=== PATIENT | male | born 1970 | race Hispanic/Latino ===

== ENCOUNTER 2017-08-12 20:46 | Emergency (ER) | payer SELFPAY ==
[2017-08-12 21:06] VITALS: BP 118/75
[2017-08-12 22:08] LABS: BUN/Creatinine Ratio 17; Blood Urea Nitrogen 17 mg/dL (9-20); Calcium 9.4 mg/dL (8.4-10.2); Carbon Dioxide 25 mmol/L (22-30); Glucose 102 mg/dL (75-100)
[2017-08-12 22:09] LABS: Anion Gap 17 mmol/L; Chloride 99.2 mmol/L (98-107); Potassium 4.5 mmol/L (3.6-5.0); Sodium 137 mmol/L (137-145)
[2017-08-12 22:18] LABS: Basophils % (Auto) 0.5 % (0.0-1.8); Eosinophils % (Auto) 1.3 % (0.0-4.3); Hematocrit 48.8 % (35.5-45.6); Hemoglobin 16.2 gm/dl (11.8-15.2); Mean Corpuscular HGB Conc 33 % (32-34); Mean Corpuscular Hemoglobin 30 pg (28-32); Mean Corpuscular Volume 89 fl (84-94); Platelet Count 296 K/mm3 (140-440); Red Blood Count 5.46 M/mm3 (3.65-5.03); Red Cell Distribution Width 13.2 % (13.2-15.2); White Blood Count 15.9 K/mm3 (4.5-11.0)
--- NOTE | 2017-08-12 22:52 | Emergency Department Report ---
ED Chest Pain HPI - General Chief Complaint: Chest Pain Stated Complaint: CHEST PAIN Time Seen by Provider: 08/12/17 22:44 Source: patient, EMS Mode of arrival: Stretcher Limitations: No Limitations - History of Present Illness Initial Comments: This is a 47-year-old male presents to the emergency department via EMS from home with complaint of some left-sided chest pain with some radiation towards the back that he says started just prior to presentation. He thinks it is due to anxiety because there is a "a lot of stuff going on at home." However he says that he is feeling much better at this time and immediately asking for discharge. He has a history of coronary artery disease with [address] Trammell for cardiology but does not have a primary care physician. He denies any tobacco abuse and only marijuana for illicit drug use. He received an aspirin in route but otherwise did not take anything for his symptoms prior to presentation. No recent travel or sick contacts at home. He also has a past history of hypertension, kidney stones. - Related Data Home Medications Medication Instructions Recorded Confirmed Last Taken Aspirin [Aspirin TAB] 325 mg PO QDAY 07/30/14 10/18/14 10/17/14 Lisinopril [Zestril] 5 mg PO QDAY 07/30/14 10/18/14 10/17/14 Metoprolol [Lopressor TAB] 25 mg PO BID 07/30/14 10/18/14 10/17/14 Previous Rx's Medication Instructions Recorded Last Taken Type Ciprofloxacin HCl [Cipro] 500 mg PO Q12H #20 tab 07/30/14 10/17/14 Rx Famotidine [Pepcid] 20 mg PO BID #20 tablet 07/30/14 10/17/14 Rx Ibuprofen [Motrin 600 MG tab] 600 mg PO Q8H PRN #50 tablet 10/12/14 10/17/14 Rx Oxycodone HCl/Acetaminophen 1 each PO Q6HR PRN #14 tablet 10/12/14 10/17/14 Rx [Percocet 7.5/325 mg] Tamsulosin [Flomax] 0.4 mg PO QDAY #10 cap 10/12/14 10/17/14 Rx Omeprazole [PriLOSEC] 20 mg PO BID #20 cap 10/18/14 Unknown Rx traMADol [Ultram] 50 mg PO Q4HR PRN #20 tablet 10/18/14 Unknown Rx Allergies Allergy/AdvReac Type Severity Reaction Status Date / Time codeine Allergy Itching Verified 10/12/14 02:54 Heart Score - HEART Score History: Moderately suspicious EKG: Normal Age: 45-65 Risk factors: > 3 risk factors or hx of atherosclerotic disease Troponin: < normal limit HEART Score: 4 - Critical Actions Critical Actions: 4-6 pts:12-16.6% risk of adverse cardiac event. Should be admitted ED Review of Systems ROS: Stated complaint: CHEST PAIN Other details as noted in HPI Comment: All other systems reviewed and negative Constitutional: denies: chills, fever Eyes: denies: eye pain, eye discharge, vision change ENT: denies: ear pain, throat pain Respiratory: denies: cough, shortness of breath Cardiovascular: chest pain. denies: palpitations Gastrointestinal: denies: abdominal pain, nausea, diarrhea Genitourinary: denies: urgency, dysuria Musculoskeletal: denies: back pain, joint swelling Skin: denies: rash, lesions Neurological: denies: headache, weakness, paresthesias ED Past Medical Hx - Past Medical History Previous Medical History?: Yes Hx Hypertension: Yes Hx Heart Attack/AMI: Yes Hx Kidney Stones: Yes - Surgical History Past Surgical History?: Yes Hx Coronary Stent: Yes (2010 x2) Additional Surgical History: Left shoulder surgery, Right knee surgery - Social History Smoking Status: Current Every Day Smoker Substance Use Type: Prescribed - Medications Home Medications: Home Medications Medication Instructions Recorded Confirmed Last Taken Type Aspirin [Aspirin TAB] 325 mg PO QDAY 07/30/14 10/18/14 10/17/14 History Ciprofloxacin HCl [Cipro] 500 mg PO Q12H #20 tab 07/30/14 10/18/14 10/17/14 Rx Famotidine [Pepcid] 20 mg PO BID #20 tablet 07/30/14 10/18/14 10/17/14 Rx Lisinopril [Zestril] 5 mg PO QDAY 07/30/14 10/18/14 10/17/14 History Metoprolol [Lopressor TAB] 25 mg PO BID 07/30/14 10/18/14 10/17/14 History Ibuprofen [Motrin 600 MG tab] 600 mg PO Q8H PRN #50 tablet 10/12/14 10/18/14 Rx Oxycodone HCl/Acetaminophen 1 each PO Q6HR PRN #14 tablet 10/12/14 10/18/14 Rx [Percocet 7.5/325 mg] Tamsulosin [Flomax] 0.4 mg PO QDAY #10 cap 10/12/14 10/18/14 10/17/14 Rx Omeprazole [PriLOSEC] 20 mg PO BID #20 cap 10/18/14 Unknown Rx traMADol [Ultram] 50 mg PO Q4HR PRN #20 tablet 10/18/14 Unknown Rx ED Physical Exam - General Limitations: No Limitations - Other Other exam information: GENERAL: The patient is well-developed well-nourished. HENT: Normocephalic. Atraumatic. Patient has moist mucous membranes. EYES: Extraocular motions are intact. Pupils equal reactive to light bilaterally. NECK: Supple. Trachea is midline. CHEST/LUNGS: Clear to auscultation. There is no respiratory distress noted. HEART/CARDIOVASCULAR: Regular. There is no tachycardia. There is no gallop rub or murmur. ABDOMEN: Abdomen is soft, nontender. Patient has normal bowel sounds. There is no abdominal distention. SKIN: Skin is warm and dry. NEURO: The patient is awake, alert, and oriented. The patient is cooperative. The patient has no focal neurologic deficits. The patient has normal speech. MUSCULOSKELETAL: There is no tenderness or deformity. There is no limitation range of motion. There is no evidence of acute injury. ED Course Vital Signs 08/12/17 20:58 Temperature 98.7 F Pulse Rate 91 H Respiratory 24 Rate Blood Pressure 118/75 O2 Sat by Pulse 97 Oximetry - Reevaluation(s) Reevaluation #1: Just as I'm doing the history and physical for this patient, the patient continually saying that he is asking to be discharged home as he says he feels better and feels it is all related to anxiety. So far his workup has been unremarkable with a normal CBC, BMP and a first negative troponin. EKG does not show any ST elevation TN. I explained to the patient that with his plate of symptoms that I would like to rule out a PE and get a second troponin on him and a repeat EKG. He does not want to stay for this. I explained to him that inability to complete the workup could result in further chest pain, myocardial infarction, disability, coma, . The patient is AAO 3 and of sound mind and understands that he is taking the responsibility for leaving prior to this workup being completed. He understands that he can return to the emergency department if he has any return of his symptoms, changes his mind or with any acute distress. He will sign the AMA form. 08/12/17 22:53 JAE score - Jae Score Age > 65: (0) No Aspirin use within the Past 7 Days: (0) No 3 or more CAD Risk Factors: (1) Yes 2 or more Angina events in past 24 hrs: (0) No Known CAD with more than 50% Stenosis: (0) No Elevated Cardiac Markers: (0) No ST Deviation Greater than 0.5mm: (0) No JAE Score: 1 ED Medical Decision Making - Lab Data Result diagrams: 08/12/17 21:25 08/12/17 21:25 - EKG Data -: EKG Interpreted by Me EKG shows normal: sinus rhythm, axis, intervals, QRS complexes, ST-T waves Rate: normal - EKG Data When compared to previous EKG there are: previous EKG unavailable Interpretation: normal EKG - Radiology Data Radiology results: image reviewed interpreted by me: Chest x-ray does not show any acute process. There are no pleural effusions, obvious pneumonia and there is no pneumothorax. - Medical Decision Making The patient originally presented with the complaint of some left-sided chest pain. However as I am finishing up the history and physical, he says that he no longer has any pain and wants to leave. I explained in great detail that he has only had a first troponin and that the troponin might not yet be positive and that we need serial troponins. I also explained the importance of other labs and imaging to rule out CHF, PE. However the patient does not want to stay for any further testing. He understands the risks of leaving prior to the workup being done and despite knowing the risks has signed out AGAINST MEDICAL ADVICE. He has been encouraged to follow up with his review consultant and return to the emergency department if he changes his mind or with any chest pain or any acute distress. - Differential Diagnosis TN, PE, costochondritis, pneumonia Critical Care Time: No Critical care attestation.: If time is entered above; I have spent that time in minutes in the direct care of this critically ill patient, excluding procedure time. ED Disposition Clinical Impression: Chest pain Qualifiers: Chest pain type: unspecified Qualified Code(s): R07.9 - Chest pain, unspecified Disposition: LEFT AGAINST MED ADVICE Is pt being admited?: No Condition: Stable Instructions: Chest Pain (ED) Additional Instructions: Please return to the emergency department with any return of your chest pain or if you change your mind about further workup. Otherwise it is recommended that he follow up with your review consultant. Referrals: JENNIFER TRAMMELL MD [Staff Physician] - ELENI Forms: AMA Form Time of Disposition: 22:53
--- NOTE | 2017-08-13 11:02 | XRay Report ---
AP CHEST: HISTORY: chest pain AP view of the chest demonstrates a normal mediastinal and cardiac contour with clear lungs and normal bony and soft tissue structures. IMPRESSION: Unremarkable AP chest.
== END 2017-08-12 22:50 | disposition left against medical advice (07) ==
LOC: ED 20:46
DX: R07.89 Other chest pain (principal); I10 Essential (primary) hypertension; F17.210 Nicotine dependence, cigarettes, uncomplicated; I25.2 Old myocardial infarction; Z79.82 Long term (current) use of aspirin; Z88.6 Allergy status to analgesic agent; Z95.1 Presence of aortocoronary bypass graft
CPT/HCPCS: 36415; 71010; 80048; 84484; 85025; 93005; 93010; 99285

== ENCOUNTER 2019-05-16 09:32 | Inpatient (IN) | payer OTHER ==
[2019-05-16 10:09] LABS: Basophils # (Auto) 0.1 K/mm3 (0.0-0.1); Basophils % (Auto) 0.9 % (0.0-1.8); Eosinophils # (Auto) 0.4 K/mm3 (0.0-0.4); Eosinophils % (Auto) 5.3 % (0.0-4.3); Hematocrit 42.2 % (35.5-45.6); Hemoglobin 14.3 gm/dl (11.8-15.2); Lymphocytes # (Auto) 1.7 K/mm3 (1.2-5.4); Lymphocytes % (Auto) 21.2 % (13.4-35.0); Mean Corpuscular HGB Conc 34 % (32-34); Mean Corpuscular Volume 88 fl (84-94); Monocytes # (Auto) 0.8 K/mm3 (0.0-0.8); Monocytes % (Auto) 9.5 % (0.0-7.3); Platelet Count 273 K/mm3 (140-440); Red Blood Count 4.81 M/mm3 (3.65-5.03)
[2019-05-16 10:22] LABS: BUN/Creatinine Ratio 16; Blood Urea Nitrogen 11 mg/dL (9-20); Calcium 8.4 mg/dL (8.4-10.2); Hemolysis Index 4
[2019-05-16] MEDS ORDERED: ZOFRAN ONE (10:25)
--- NOTE | 2019-05-16 10:26 | Emergency Department Report ---
ED Chest Pain HPI - General Chief Complaint: Chest Pain Stated Complaint: CHEST PAIN Time Seen by Provider: 05/16/19 10:12 Source: patient, EMS Mode of arrival: Stretcher Limitations: Other - History of Present Illness Initial Comments: Patient is 48 years old male with history of coronary artery disease status post [place] [address] Pittman per patient report. Patient also had history of hypertension. Patient brought to the emergency room from assisted via EMS for evaluation of left sided chest pain, pressure radiating to the left upper extremity. Patient stated that pain improved with nitroglycerin. Patient received aspirin and nitroglycerin was seen prior to coming to the ER. Patient denied any shortness of breath. Patient denied any fever, chills or cough. MD Complaint: chest pain -: Last night Onset: during rest Pain Location: left chest Pain Radiation: LUE Severity: moderate Severity scale (0 -10): 6 Quality: heaviness, pressure Consistency: constant Improves With: nitroglycerin Worsens With: nothing - Related Data Home Medications Medication Instructions Recorded Confirmed Last Taken Aspirin [Aspirin TAB] 325 mg PO QDAY 07/30/14 10/18/14 10/17/14 Lisinopril [Zestril] 5 mg PO QDAY 07/30/14 10/18/14 10/17/14 Metoprolol [Lopressor TAB] 25 mg PO BID 07/30/14 10/18/14 10/17/14 Previous Rx's Medication Instructions Recorded Last Taken Type Ciprofloxacin HCl [Cipro] 500 mg PO Q12H #20 tab 07/30/14 10/17/14 Rx Famotidine [Pepcid] 20 mg PO BID #20 tablet 07/30/14 10/17/14 Rx Ibuprofen [Motrin 600 MG tab] 600 mg PO Q8H PRN #50 tablet 10/12/14 10/17/14 Rx Oxycodone HCl/Acetaminophen 1 each PO Q6HR PRN #14 tablet 10/12/14 10/17/14 Rx [Percocet 7.5/325 mg] Tamsulosin [Flomax] 0.4 mg PO QDAY #10 cap 10/12/14 10/17/14 Rx Omeprazole [PriLOSEC] 20 mg PO BID #20 cap 10/18/14 Unknown Rx traMADol [Ultram] 50 mg PO Q4HR PRN #20 tablet 10/18/14 Unknown Rx Allergies Allergy/AdvReac Type Severity Reaction Status Date / Time codeine Allergy Itching Verified 05/16/19 09:50 Heart Score - HEART Score History: Moderately suspicious EKG: Non-specific Age: 45-65 Risk factors: > 3 risk factors or hx of atherosclerotic disease Troponin: < normal limit HEART Score: 5 - Critical Actions Critical Actions: 4-6 pts:12-16.6% risk of adverse cardiac event. Should be admitted ED Review of Systems ROS: Stated complaint: CHEST PAIN Other details as noted in HPI Comment: All other systems reviewed and negative Constitutional: denies: chills, fever ENT: denies: throat pain Respiratory: denies: cough, shortness of breath, SOB with exertion Cardiovascular: chest pain. denies: palpitations, dyspnea on exertion Gastrointestinal: nausea, vomiting. denies: abdominal pain, diarrhea, constipation, hematemesis, melena, hematochezia Genitourinary: denies: dysuria Musculoskeletal: denies: back pain Neurological: denies: headache, weakness, numbness, paresthesias, confusion, abnormal gait ED Past Medical Hx - Past Medical History Previous Medical History?: Yes Hx Hypertension: Yes Hx Heart Attack/AMI: Yes (2010) Hx Kidney Stones: Yes - Surgical History Past Surgical History?: Yes Hx Coronary Stent: Yes (2010 x2) Additional Surgical History: Left shoulder surgery, Right knee surgery - Social History Smoking Status: Former Smoker Substance Use Type: None - Medications Home Medications: Home Medications Medication Instructions Recorded Confirmed Last Taken Type Aspirin [Aspirin TAB] 325 mg PO QDAY 07/30/14 10/18/14 10/17/14 History Ciprofloxacin HCl [Cipro] 500 mg PO Q12H #20 tab 07/30/14 10/18/14 10/17/14 Rx Famotidine [Pepcid] 20 mg PO BID #20 tablet 07/30/14 10/18/14 10/17/14 Rx Lisinopril [Zestril] 5 mg PO QDAY 07/30/14 10/18/14 10/17/14 History Metoprolol [Lopressor TAB] 25 mg PO BID 07/30/14 10/18/14 10/17/14 History Ibuprofen [Motrin 600 MG tab] 600 mg PO Q8H PRN #50 tablet 10/12/14 10/18/1410/17/15 Rx Oxycodone HCl/Acetaminophen 1 each PO Q6HR PRN #14 tablet 10/12/14 10/18/14 10/17/14 Rx [Percocet 7.5/325 mg] Tamsulosin [Flomax] 0.4 mg PO QDAY #10 cap 10/12/14 10/18/14 10/17/14 Rx Omeprazole [PriLOSEC] 20 mg PO BID #20 cap 10/18/14 Unknown Rx traMADol [Ultram] 50 mg PO Q4HR PRN #20 tablet 10/18/14 Unknown Rx ED Physical Exam - General Limitations: Other General appearance: alert, in no apparent distress - Head Head exam: Present: atraumatic, normocephalic, normal inspection - Eye Eye exam: Present: normal appearance, PERRL - ENT ENT exam: Present: normal exam, normal orophraynx, mucous membranes moist - Neck Neck exam: Present: normal inspection, full ROM. Absent: tenderness, meni ngismus, lymphadenopathy, thyromegaly - Respiratory Respiratory exam: Present: normal lung sounds bilaterally - Cardiovascular Cardiovascular Exam: Present: regular rate, normal rhythm, normal heart sounds - GI/Abdominal GI/Abdominal exam: Present: soft, normal bowel sounds. Absent: distended, tenderness, guarding, rebound, rigid, organomegaly, mass, bruit, pulsatile mass, hernia - Extremities Exam Extremities exam: Present: normal inspection, full ROM, normal capillary refill - Back Exam Back exam: Present: normal inspection, full ROM. Absent: CVA tenderness (R), CVA tenderness (L), muscle spasm, paraspinal tenderness, vertebral tenderness - Neurological Exam Neurological exam: Present: alert, oriented X3, CN II-XII intact, normal gait, reflexes normal - Psychiatric Psychiatric exam: Present: normal mood - Skin Skin exam: Present: warm, intact, normal color ED Course Vital Signs 05/16/19 05/16/19 05/16/19 09:36 09:43 09:46 Temperature Pulse Rate 74 70 66 Respiratory 11 L 16 18 Rate Blood Pressure 106/66 106/66 O2 Sat by Pulse 97 98 98 Oximetry 05/16/19 05/16/19 05/16/19 10:00 10:13 10:30 Temperature 98.3 F Pulse Rate 66 68 Respiratory 15 16 Rate Blood Pressure 111/70 108/56 O2 Sat by Pulse 97 99 Oximetry 05/16/19 05/16/19 11:00 11:31 Temperature Pulse Rate 60 62 Respiratory 17 11 L Rate Blood Pressure 89/41 107/65 O2 Sat by Pulse 96 99 Oximetry - Consultations Consultation #1: 05/16/19 11:50 I discussed the patient with Melissa Moss,PRISONER CLASSIFICATION INTERVIEWER with Dr. Walter. She stated that they will come down to evaluate the patient. JAE score - Jae Score Age > 65: (0) No Aspirin use within the Past 7 Days: (0) No 3 or more CAD Risk Factors: (1) Yes 2 or more Angina events in past 24 hrs: (0) No Known CAD with more than 50% Stenosis: (0) No Elevated Cardiac Markers: (0) No ST Deviation Greater than 0.5mm: (0) No JAE Score: 1 ED Medical Decision Making - Lab Data Result diagrams: 05/16/19 09:51 05/16/19 09:51 - EKG Data -: EKG Interpreted by [place] EKG shows normal: sinus rhythm Rate: normal - EKG Data Interpretation: no acute changes - Radiology Data Radiology results: report reviewed - Medical Decision Making Patient is 48 years old male with history of coronary artery disease status [place] [address] Pittman per patient report. Patient also had history of hypertension. Patient brought to the emergency room from assisted via EMS for evaluation of left sided chest pain, pressure radiating to the left upper extremity. Patient stated that pain improved with nitroglycerin. Patient received aspirin and nitroglycerin was seen prior to coming to the ER. Patient denied any shortness of breath. Patient denied any fever, chills or cough. EKG showed no ST elevation. Chest x-ray is unremarkable. First set of troponin is negative. I discussed the patient with Melissa Moss PRISONER CLASSIFICATION INTERVIEWER with Dr. Walter. I discussed the patient with Dr. Damon for admission. Critical Care Time: Yes Critical care time in (mins) excluding proc time.: 30 Critical care attestation.: If time is entered above; I have spent that time in minutes in the direct care of this critically ill patient, excluding procedure time. ED Disposition Clinical Impression: Chest pain, Unstable angina Disposition: OP ADMIT IP TO THIS HOSP Is pt being admited?: Yes Condition: Stable Instructions: Angina (ED), Chest Pain (ED) Referrals: PRIMARY CARE,MD [Referring] - 3-5 Days
[2019-05-16] MEDS ORDERED: ZOFRAN IV ONE ×2 (10:29→13:13)
--- NOTE | 2019-05-16 11:59 | XRay Report ---
CHEST 1 VIEW INDICATION: Chest Pain. COMPARISON: 08/12/2017 FINDINGS: Support devices: None. Heart: Normal. Pulmonary vasculature: Normal. Lungs/Pleura: No acute air space or interstitial disease. Additional findings: None. IMPRESSION: No acute cardiopulmonary process. Signer Name: Silvestre Dixon MD Signed: 05/16/2019 11:55 AM Workstation Name: [id number]
[2019-05-16] MEDS ORDERED: MORPHINE IV ONE ×2 (13:13→19:09)
[2019-05-16] MEDS ORDERED: ZOFRAN IV PRN (13:25)
[2019-05-16] MEDS ORDERED: SODIUM CHLORIDE FLUSH SYRINGE 10 ML IV PRN ×2 (13:25)
[2019-05-16] MEDS ORDERED: TYLENOL PO PRN (13:25)
[2019-05-16] MEDS ORDERED: PROVENTIL IH PRN (13:25)
--- NOTE | 2019-05-16 13:25 | History and Physical Report ---
History of Present Illness Chief complaint: My chest hurts History of present illness: 48 YO Male with HTN, Obesity, NE, CAD S/P Stent Placement, Nephrolithiasis presents to ED for evaluation. Pt states that he has experienced pain in his chest over the past 1 week, with worsening symptoms over the past 1 day. Pt stat es that pain acutely worsened this morning shortly after eating breakfast. Pt states that pain 05/05/10, Intermittent, localized to the left chest, radiates to the left arm, worsened with exertion, improved with nitro. Pt also acknowledges Orthopnea/PND and decreased exercise tolerance. EMS notified, and patient transported to [facility]. Pt seen and evaluated in ED and found to have symptoms consistent with Angina, and CHF Decompensation. Pt admitted to telemetry. Cardiology consulted in ED. Pt denies fever, chills, palpitations, NVD, Trauma, BRBPR, Productive cough, hemoptysis, shortness of breath, or recent ill contacts, leg swelling, calf pain, individual/family history of DVT/PE/Bleeding/Blood Clotting Disorders, skin rash. No prior admission for review. All medication listed reconciled at time of admission. Past History Past Medical History: acute NE, CAD, hypertension Past Surgical History: Other (left Shoulder, Right Knee, Stent) Social history: , other (Incarcerated) Family history: CAD, hypertension Medications and Allergies Allergies Allergy/AdvReac Type Severity Reaction Status Date / Time codeine Allergy Itching Verified 05/16/19 09:50 Home Medications Medication Instructions Recorded Confirmed Last Taken Type Aspirin [Aspirin TAB] 325 mg PO QDAY 07/30/14 05/16/19 10/17/14 History Lisinopril [Zestril] 20 mg PO QDAY 05/16/19 05/16/19 Unknown History Metoprolol [Lopressor TAB] 50 mg PO BID 05/16/19 05/16/19 Unknown History Review of Systems Constitutional: no weight loss, no weight gain, no fever, no chills Ears, nose, mouth and throat: no ear pain, no ear discharge, no tinnitis, no decreased hearing, no nose pain, no nasal congestion Cardiovascular: chest pain, orthopnea, dyspnea on exertion, decreased exercise tolerance, no palpitations, no rapid/irregular heart beat, no edema Respiratory: no cough, no cough with sputum, no excessive sputum, no hemoptysis, no shortness of breath Gastrointestinal: no abdominal pain, no nausea, no vomiting, no diarrhea, no constipation Genitourinary Male: no dysuria, no hematuria, no flank pain, no urinary hesitancy, no incontinence Rectal: no pain, no incontinence, no bleeding Musculoskeletal: no neck pain, no shooting arm pain, no arm numbness/tingling, no low back pain, no shooting leg pain Integumentary: no rash, no pruritis, no sores, no wounds Neurological: no transient paralysis, no paralysis, no weakness, no parathesias, no numbness, no tingling, no seizures Psychiatric: no anxiety, no memory loss, no change in sleep habits, no sleep disturbances, no insomnia, no hypersomnia, no change in appetite, no change in libido, no suicidal ideation Endocrine: no cold intolerance, no heat intolerance, no polyphagia, no excessive thirst, no polydipsia, no polyuria, no nocturia Hematologic/Lymphatic: no easy bruising, no easy bleeding, no lymphadenopathy, no lymphedema Allergic/Immunologic: no urticaria, no allergic rhinitis, no wheezing, no persistent infections, no anaphylaxis, no angioedema Exam - Constitutional Vitals: Temp Pulse Resp BP Pulse Ox 98.3 F 69 20 112/69 98 05/16/19 10:13 05/16/19 13:00 05/16/19 13:18 05/16/19 13:00 05/16/19 13:00 General appearance: Present: mild distress, well-nourished - EENT Eyes: Present: PERRL ENT: hearing intact, clear oral mucosa - Neck Neck: Present: supple, normal ROM - Respiratory Respiratory effort: normal Respiratory: bilateral: CTA - Cardiovascular Heart Sounds: Present: S1 & S2. Absent: rub, click - Extremities Extremities: pulses symmetrical, No edema Peripheral Pulses: within normal limits - Abdominal General gastrointestinal: Present: soft, non-tender, non-distended, normal bowel sounds Male genitourinary: Present: normal - Integumentary Integumentary: Present: clear, warm, dry - Musculoskeletal Musculoskeletal: gait normal, strength equal bilaterally - Psychiatric Psychiatric: appropriate mood/affect, intact judgment & insight - Neurologic Neurologic: CNII-XII intact, moves all extremities Results - Labs CBC & Chem 7: 05/16/19 09:51 05/16/19 09:51 Labs: Abnormal lab results 05/16/19 05/16/19 Range/Units 09:51 09:51 [place] % (Auto) 9.5 H (0.0-7.3) % Eos % (Auto) 5.3 H (0.0-4.3) % Creatinine 0.7 L (0.8-1.5) mg/dL Glucose 105 H (75-100) mg/dL Assessment and Plan - Patient Problems (1) Angina at rest Current Visit: Yes Status: Acute Plan to address problem: Admit to telemetry, serial cardiac enzymes, ekg, stress test, morphine, supplemental oxygen, nitro, aspirin, cardiology consulted. (2) Diastolic CHF Current Visit: Yes Status: Acute Qualifiers: Heart failure chronicity: acute Qualified Code(s): I50.31 - Acute diastolic (congestive) heart failure Plan to address problem: Strict I/O, daily weight, bnp, afterload reduction, cardiology consulted in ED. Echo as per cardiology team. (3) HTN (hypertension) Current Visit: Yes Status: Acute Qualifiers: Hypertension type: essential hypertension Qualified Code(s): I10 - Essential (primary) hypertension Plan to address problem: Monitor BP q shift, continue medical management. (4) CAD (coronary artery disease) Current Visit: Yes Status: Acute Qualifiers: Associated angina: with stable angina Plan to address problem: lipid panel, low cholesterol diet, statin therapy, (5) Obesity (BMI 30.0-34.9) Current Visit: Yes Status: Acute Plan to address problem: balanced diet, increased physical activity at discharge, +15 minutes behavior change. (6) DVT prophylaxis Current Visit: Yes Status: Acute Plan to address problem: SCD to BLE while in bed, Pt is ambulatory
[2019-05-16] MEDS ORDERED: BABY ASPIRIN PO STA (13:32)
--- NOTE | 2019-05-16 14:26 | Consultation ---
History of Present Illness Consult date: 05/16/19 Requesting physician: NITA JUNIOR Consult reason: chest pain, known to you History of present illness: The pt is a 48 YO male with a past medical history of CAD s/p acute inferior AMI with PCI of mid and prox RCA in 2010, HTN, dyslipidemia, former tobacco use (quit smoking in 2010). He is followed in our office by Dr. Pittman (last seen 10/2017, is not regularly followed due to insurance issues). He is currently incarcerated. He presented with c/o chest pain for approx the past 5-7 days with worsening of the pain since this morning. He describes his chest pain as an intermittent left-sided pressure which does radiate into his left arm at times. The pain is associated with some SOB. There are no clear aggravating factors. The pain became more severe and was constant this morning after he ate breakfast and thus he decided to seek medical attention. Pt was given SL nitro en route to hospital by EMS and states that the nitro greatly improved his pain. On evaluation, the pain has nearly resolved. Pt denies any palpitations, n/v, diaphoresis, dizziness or syncope. Pt states his home medication regimen cu rrently consists of ASA 81, lopressor and lisinopril. [facility] 05/2011 with acute inferior NE, s/p INTEGRITY stent placed in mid and proximal RCA with good result, 70% mid LAD, 80% ostial dx lesion with no significant disease in circ, with preserved EF. Past History Past Medical History: acute NE, CAD, hypertension Past Surgical History: PTCA Social history: smoking (former) Medications and Allergies Allergies Allergy/AdvReac Type Severity Reaction Status Date / Time codeine Allergy Itching Verified 05/16/19 09:50 Home Medications Medication Instructions Recorded Confirmed Last Taken Type Aspirin [Aspirin TAB] 325 mg PO QDAY 07/30/14 05/16/19 10/17/14 History Lisinopril [Zestril] 20 mg PO QDAY 05/16/19 05/16/19 Unknown History Metoprolol [Lopressor TAB] 50 mg PO BID 05/16/19 05/16/19 Unknown History Active Meds: Active Medications Acetaminophen (Tylenol) 650 mg PO Q4H PRN PRN Reason: Pain MILD(1-3)/Fever >100.5/PERALES Albuterol (Proventil) 2.5 mg IH Q4HRT PRN PRN Reason: Shortness Of Breath Lisinopril (Zestril) 20 mg PO QDAY [facility] Metoprolol Tartrate (Lopressor) 50 mg PO BID [facility] Nitroglycerin (Nitrostat) 0.4 mg SL Q5M PRN PRN Reason: Chest Pain Ondansetron HCl (Zofran) 4 mg IV Q8H PRN PRN Reason: Nausea And Vomiting Sodium Chloride (Sodium Chloride Flush Syringe 10 Ml) 10 ml IV BID BITA Sodium Chloride (Sodium Chloride Flush Syringe 10 Ml) 10 ml IV PRN PRN PRN Reason: LINE FLUSH Review of Systems Constitutional: no weight loss, no weight gain, no fever, no chills, no sweats Ears, nose, mouth and throat: no ear pain, no nose pain, no sinus pressure, no sinus pain Cardiovascular: chest pain, shortness of breath, high blood pressure, no orthopnea, no palpitations, no rapid/irregular heart beat, no edema, no syncope, no lightheadedness Respiratory: shortness of breath, no cough, no congestion, no wheezing, no pain on inspiration Gastrointestinal: no abdominal pain, no nausea, no vomiting, no diarrhea, no constipation, no change in bowel habits Genitourinary Male: no dysuria, no hematuria, no flank pain, no discharge, no urinary frequency, no urinary hesitancy Musculoskeletal: no neck stiffness, no neck pain, no shooting arm pain, no arm numbness/tingling, no low back pain, no shooting leg pain Integumentary: no rash, no pruritis, no redness, no sores, no wounds Neurological: no head injury, no paralysis, no weakness, no parathesias, no numbness, no tingling, no seizures, no syncope Psychiatric: no anxiety Endocrine: no cold intolerance, no heat intolerance Hematologic/Lymphatic: no easy bruising, no easy bleeding Allergic/Immunologic: no urticaria, no wheezing Physical Examination Vital Signs Pulse Resp Pulse Ox 74 11 L 97 05/16/19 09:36 05/16/19 09:36 05/16/19 09:36 General appearance: no acute distress HEENT: Positive: PERRL, Normocephaly, Mucus Membranes Moist Neck: Positive: neck supple, trachea midline Cardiac: Positive: Reg Rate and Rhythm, S1/S2 Lungs: Positive: clear to auscultation Neuro: Positive: Grossly Intact Abdomen: Negative: Tender Skin: Negative: Rash Musculoskeletal: No Pain Extremities: Absent: edema Results 05/16/19 09:51 05/16/19 09:51 CBC 05/16/19 Range/Units 09:51 WBC 8.0 (4.5-11.0) K/mm3 RBC 4.81 (3.65-5.03) M/mm3 Hgb 14.3 (11.8-15.2) gm/dl Hct 42.2 (35.5-45.6) % Plt Count 273 (140-440) K/mm3 Lymph # 1.7 (1.2-5.4) K/mm3 Gaines # 0.8 (0.0-0.8) K/mm3 Eos # 0.4 (0.0-0.4) K/mm3 Baso # 0.1 (0.0-0.1) K/mm3 Comprehensive Metabolic Panel 05/16/19 Range/Units 09:51 Sodium 138 (137-145) mmol/L Potassium 3.9 (3.6-5.0) mmol/L Chloride 104.6 (98-107) mmol/L Carbon Dioxide 23 (22-30) mmol/L BUN 11 (9-20) mg/dL Creatinine 0.7 L (0.8-1.5) mg/dL Glucose 105 H (75-100) mg/dL Calcium 8.4 (8.4-10.2) mg/dL - Imaging and Cardiology Echo: pending Cardiac cath: report reviewed ([facility] 05/2011 with acute inferior NE, s/p INTEGRITY stent placed in mid and proximal RCA with good result, 70% mid LAD, 80% ostial dx lesion with no significant disease in circ, with preserved EF.) EKG: report reviewed, image reviewed EKG interpretations - Telemetry EKG Rhythm: Sinus Rhythm - EKG Sinus rhythms and dysrhythmias: sinus rhythm Assessment and Plan Pt reports near resolution of chest pain after receiving SL nitro. ECG with no acute ischemic changes, Brittney negative for AMI x 2 sets. Plan for lexiscan MPI stress test in AM. NPO after MN. Obtain echo. Resume home cardiac regimen. Further recs to follow per hospital course. The patient has been seen in conjunction with Dr. Walter who agrees with the assessment and plan of care. - Patient Problems (1) Chest pain Current Visit: Yes Status: Acute (2) CAD (coronary artery disease) Current Visit: Yes Status: Chronic Qualifiers: Associated angina: with stable angina (3) Stented coronary artery Current Visit: Yes Status: Chronic (4) HTN (hypertension) Current Visit: Yes Status: Chronic Qualifiers: Hypertension type: essential hypertension Qualified Code(s): I10 - Essential (primary) hypertension (5) Dyslipidemia Current Visit: Yes Status: Chronic
[2019-05-16] MEDS: NITROSTAT SL PRN ×3 (16:38→18:57)
[2019-05-16] MEDS: LOPRESSOR PO SCH (21:18)
[2019-05-16] MEDS: SODIUM CHLORIDE FLUSH SYRINGE 10 ML IV SCH (21:18)
[2019-05-17 05:54] LABS: Chol/HDL Ratio 4.24 %
[2019-05-17] MEDS ORDERED: LEXISCAN IV ONE (06:52)
[2019-05-17] MEDS: SODIUM CHLORIDE FLUSH SYRINGE 10 ML IV SCH ×2 (11:11→21:14)
[2019-05-17] MEDS: LOPRESSOR PO SCH ×2 (11:11→21:11)
[2019-05-17] MEDS: ZESTRIL PO SCH (11:11)
[2019-05-17] MEDS: ASPIRIN PO SCH (11:12)
[2019-05-17] MEDS ORDERED: HEPARIN 10,000 UNITS/10 ML IV ONE (12:27)
--- NOTE | 2019-05-17 12:54 | Treadmill Report ---
STRESS THALLIUM ROOM NUMBER: [id number]. Resting scan with technetium-99 revealed mildly diminished uptake in the inferior wall and very minimally diminished uptake in the localized anterior wall area. On post-Lexiscan, radioisotope activity was markedly reduced in septal and anterior wall area of moderate intensity. On gated scan, ejection fraction was noted to be 59%. There was also transient ischemic dilatation of 1.23 from the resting scan. IMPRESSION: 1. This test is strongly positive for extensive anteroseptal ischemia. 2. Transient ischemic dilatation of 1.23. Recommend coronary arteriogram for further management of the patient. JOB# [id number] KALANI/ORI
[2019-05-17] MEDS: HEPARIN/ 0.45% NACL-25,000 UNIT/500 ML 25,000 UNIT/500 ML BAG IV SCH (12:56)
[2019-05-17 13:02] LABS: Hemoglobin 15.7 gm/dl (11.8-15.2)
[2019-05-17 13:15] LABS: INR 1.05 (0.87-1.13)
--- NOTE | 2019-05-17 16:21 | Progress Note ---
Assessment and Plan (1) Chest pain Current Visit: Yes Status: Acute Patient macular portion scan is strongly positive indicating anteroseptal ischemia of moderate severity. Patient is also known to have transient ischemic dilatation suggestive proximal artery stenosis in the left main or left anterior descending artery (2) CAD (coronary artery disease) Current Visit: Yes Status: Chronic Qualifiers: Associated angina: with stable angina (3) Stented coronary artery Current Visit: Yes Status: Chronic (4) HTN (hypertension) Current Visit: Yes Status: Chronic Qualifiers: Hypertension type: essential hypertension Qualified Code(s): I10 - Essential (primary) hypertension (5) Dyslipidemia Current Visit: Yes Status: Chronic Recommendation; coronary arteriogram and intervention discussed with the patient. The risks and the benefits discussed at length. Patient is willing to proceed. We will schedule the morning. Starting on heparin. Spoke hospitalist. Subjective Date of service: 05/17/19 Interval history: Patient underwent a myocardial perfusion scan this morning. Results discussed with the patient. Continues to have chest pain lasting 5-8 minutes. Cardioplegia. Objective Vital Signs Temp Pulse Resp BP Pulse Ox 05/17/19 11:11 70 130/79 05/17/19 10:52 98.4 F 70 16 130/79 97 05/17/19 09:42 95 05/17/19 09:14 100 H 102/61 05/17/19 09:13 101 H 104/62 05/17/19 09:12 109 H 108/57 05/17/19 09:11 115 H 107/63 05/17/19 09:10 118 H 100/66 05/17/19 09:09 129 H 103/71 05/17/19 09:08 104/62 05/17/19 09:06 108/57 05/17/19 09:05 107/63 05/17/19 09:04 100/66 05/17/19 08:58 103/71 05/17/19 08:48 75 111/71 05/17/19 08:41 111/71 05/17/19 04:57 98.3 F 05/17/19 04:54 62 18 105/65 96 05/17/19 00:00 68 05/16/19 22:58 98.6 F 05/16/19 22:57 77 18 101/64 97 05/16/19 21:34 98 05/16/19 19:53 98.5 F 05/16/19 19:52 72 18 116/73 99 05/16/19 19:24 18 127/64 05/16/19 18:57 93 H 134/69 05/16/19 18:50 77 128/86 05/16/19 16:43 18 05/16/19 16:38 68 136/83 - Physical Examination HEENT: Positive: PERRL, Normocephaly, Mucus Membranes Moist Neck: Positive: neck supple, trachea midline Neuro: Positive: Grossly Intact Abdomen: Negative: Tender Skin: Negative: Rash Musculoskeletal: No Pain Extremities: Absent: edema - Labs and Meds Coagulation 05/17/19 Range/Units 12:48 PT 13.4 (12.2-14.9) Sec. INR 1.05 (0.87-1.13) APTT 23.0 L (24.2-36.6) Sec. Lipids 05/17/19 Range/Units 04:42 Triglycerides 138 (2-149) mg/dL Cholesterol 123 (50-199) mg/dL HDL Cholesterol 29 L (40-59) mg/dL Cholesterol/HDL Ratio 4.24 % CBC 05/17/19 Range/Units 12:48 Hgb 15.7 H (11.8-15.2) gm/dl Hct 46.0 H (35.5-45.6) % Plt Count 313 (140-440) K/mm3 - Imaging and Cardiology EKG: report reviewed, image reviewed Echo: pending Cardiac cath: report reviewed ([facility] 05/2011 with acute inferior MD, s/p INTEGRITY stent placed in mid and proximal RCA with good result, 70% mid LAD, 80% ostial dx lesion with no significant disease in circ, with preserved EF.) - EKG Sinus rhythms and dysrhythmias: sinus rhythm
--- NOTE | 2019-05-17 16:58 | Progress Note ---
Assessment and Plan Assessment and plan: 48 YO Male with HTN, Obesity, MD, CAD S/P Stent Placement, Nephrolithiasis presents to ED for evaluation. Pt states that he has experienced pain in his chest over the past 1 week, with worsening symptoms over the past 1 day. Pt states that pain acutely worsened this morning shortly after eating breakfast. Pt states that pain 05/05/10, Intermittent, localized to the left chest, radiates to the left arm, worsened with exertion, improved with nitro. Pt also acknowledges Orthopnea/PND and decreased exercise tolerance. EMS notified, and patient transported to [facility]. Pt seen and evaluated in ED and found to have symptoms consistent with Angina, and CHF Decompensation. Pt admitted to telemetry. Cardiology consulted in ED. Pt denies fever, chills, palpitations, NVD, Trauma, BRBPR, Productive cough, hemoptysis, shortness of breath, or recent ill contacts, leg swelling, calf pain, individual/family history of DVT/PE/Bleeding/Blood Clotting Disorders, skin rash. No prior admission for review. All medication listed reconciled at time of admission. (1) Angina at rest-NSTEMI Current Visit: Yes Status: Acute Plan to address problem: Serial cardiac enzymes, ekg, morphine, supplemental oxygen, nitro, aspirin, Discussed with cardiology Heparin drip started stress test positive (2) Diastolic CHF Current Visit: Yes Status: Acute Qualifiers: Heart failure chronicity: acute Qualified Code(s): I50.31 - Acute diastolic (congestive) heart failure Plan to address problem: Strict I/O, daily weight, bnp, afterload reduction, cardiology consulted in ED. Echo as per cardiology team. (3) HTN (hypertension) Current Visit: Yes Status: Acute Qualifiers: Hypertension type: essential hypertension Qualified Code(s): I10 - Essential (primary) hypertension Plan to address problem: Monitor BP q shift, continue medical management. (4) CAD (coronary artery disease) Current Visit: Yes Status: Acute Qualifiers: Associated angina: with stable angina Plan to address problem: lipid panel, low cholesterol diet, statin therapy, (5) Obesity (BMI 30.0-34.9) Current Visit: Yes Status: Acute Plan to address problem: balanced diet, increased physical activity at discharge, +15 minutes behavior change. (6) DVT prophylaxis Current Visit: Yes Status: Acute Plan to address problem: SCD to BLE while in bed, Pt is ambulatory History Interval history: Patient seen and examined and in no acute distress, Hospitalist Physical - Physical exam Narrative exam: General appearance: Present: mild distress, well-nourished - EENT Eyes: Present: PERRL ENT: hearing intact, clear oral mucosa - Neck Neck: Present: supple, normal ROM - Respiratory Respiratory effort: normal Respiratory: bilateral: CTA - Cardiovascular Heart Sounds: Present: S1 & S2. Absent: rub, click - Extremities Extremities: pulses symmetrical, No edema Peripheral Pulses: within normal limits - Abdominal General gastrointestinal: Present: soft, non-tender, non-distended, normal bowel sounds Male genitourinary: Present: normal - Integumentary Integumentary: Present: clear, warm, dry - Musculoskeletal Musculoskeletal: gait normal, strength equal bilaterally - Psychiatric Psychiatric: appropriate mood/affect, intact judgment & insight - Neurologic Neurologic: CNII-XII intact, moves all extremities - Constitutional Vitals: Temp Pulse Resp BP Pulse Ox 98.4 F 70 16 130/79 97 05/17/19 10:52 05/17/19 11:11 05/17/19 10:52 05/17/19 11:11 05/17/19 10:52 General appearance: Present: no acute distress Results - Labs CBC & Chem 7: 05/18/19 04:40 05/18/19 04:40 Labs: Laboratory Last Values WBC 8.0 K/mm3 (4.5-11.0) 05/16/19 09:51 RBC 4.81 M/mm3 (3.65-5.03) 05/16/19 09:51 Hgb 15.7 gm/dl (11.8-15.2) H 05/17/19 12:48 Hct 46.0 % (35.5-45.6) H 05/17/19 12:48 MCV 88 fl (84-94) 05/16/19 09:51 MCH 30 pg (28-32) 05/16/19 09:51 MCHC 34 % (32-34) 05/16/19 09:51 RDW 14.0 % (13.2-15.2) 05/16/19 09:51 Plt Count 313 K/mm3 (140-440) 05/17/19 12:48 Lymph % (Auto) 21.2 % (13.4-35.0) 05/16/19 09:51 [place] % (Auto) 9.5 % (0.0-7.3) H 05/16/19 09:51 Eos % (Auto) 5.3 % (0.0-4.3) H 05/16/19 09:51 Baso % (Auto) 0.9 % (0.0-1.8) 05/16/19 09:51 Lymph # 1.7 K/mm3 (1.2-5.4) 05/16/19 09:51 [place]ford # 0.8 K/mm3 (0.0-0.8) 05/16/19 09:51 Eos # 0.4 K/mm3 (0.0-0.4) 05/16/19 09:51 Baso # 0.1 K/mm3 (0.0-0.1) 05/16/19 09:51 Seg Neutrophils % 63.1 % (40.0-70.0) 05/16/19 09:51 Seg Neutrophils # 5.1 K/mm3 (1.8-7.7) 05/16/19 09:51 PT 13.4 Sec. (12.2-14.9) 05/17/19 12:48 INR 1.05 (0.87-1.13) 05/17/19 12:48 APTT 23.0 Sec. (24.2-36.6) L 05/17/19 12:48 Sodium 138 mmol/L (137-145) 05/16/19 09:51 Potassium 3.9 mmol/L (3.6-5.0) 05/16/19 09:51 Chloride 104.6 mmol/L (98-107) 05/16/19 09:51 Carbon Dioxide 23 mmol/L (22-30) 05/16/19 09:51 14 mmol/L 05/16/19 09:51 BUN 11 mg/dL (9-20) 05/16/19 09:51 0.7 mg/dL (0.8-1.5) L 05/16/19 09:51 Estimated GFR > 60 ml/min 05/16/19 09:51 16 % 05/16/19 09:51 Glucose 105 mg/dL (75-100) H 05/16/19 09:51 Calcium 8.4 mg/dL (8.4-10.2) 05/16/19 09:51 < 0.010 ng/mL (0.00-0.029) 05/16/19 20:42 Triglycerides 138 mg/dL (2-149) 05/17/19 04:42 Cholesterol 123 mg/dL (50-199) 05/17/19 04:42 86 mg/dL (50-130) 05/17/19 04:42 29 mg/dL (40-59) L 05/17/19 04:42 4.24 % 05/17/19 04:42 19 units/L (13-60) 05/16/19 09:51 Active Medications - Current Medications Current Medications: Generic Name Dose Route Start Last Admin Trade Name Freq PRN Reason Stop Dose Admin Acetaminophen 650 mg 05/16/19 13:25 05/16/19 16:49 Tylenol PO 650 mg Q4H PRN Administration Pain MILD(1-3)/Fever >100.5/PERALES Albuterol 2.5 mg 05/16/19 13:25 Proventil IH Q4HRT PRN Shortness Of Breath Aspirin 325 mg 05/17/19 10:00 05/17/19 11:12 Aspirin PO 325 mg QDAY BITA Administration Atorvastatin Calcium 20 mg 05/16/19 22:00 05/16/19 21:18 Lipitor PO 20 mg QHS BITA Administration Heparin Sodium/Sodium Chloride 25,000 unit in 500 mls @ 20 mls/hr 05/17/19 13:00 05/17/19 12:56 Heparin/ 0.45% Nacl-25,000 Unit/500 Ml IV 05/18/19 04:00 1,000 units/hr TITRATE BITA 20 mls/hr Administration Protocol 1,000 UNITS/HR Lisinopril 20 mg 05/17/19 10:00 05/17/19 11:11 Zestril PO 20 mg QDAY BITA Administration Metoprolol Tartrate 50 mg 05/16/19 22:00 05/17/19 11:11 Lopressor PO 50 mg BID BITA Administration Nitroglycerin 0.4 mg 05/16/19 13:25 05/16/19 18:57 Nitrostat SL 0.4 mg Q5M PRN Administration Chest Pain Ondansetron HCl 4 mg 05/16/19 13:25 08/21/19 19:16 Zofran IV 4 mg Q8H PRN Administration Nausea And Vomiting Sodium Chloride 10 ml 05/16/19 22:00 05/17/19 11:11 Sodium Chloride Flush Syringe 10 Ml IV 10 ml BID BITA Administration Sodium Chloride 10 ml 05/16/19 13:25 Sodium Chloride Flush Syringe 10 Ml IV PRN PRN LINE FLUSH
[2019-05-17] MEDS: NITROSTAT SL PRN ×2 (17:20→17:32)
[2019-05-17] MEDS: NACL 0.9% 1000 ML 1,000 ML IV SCH (17:48)
[2019-05-17] MEDS ORDERED: NITRO-BID 2% TP ONE (17:50)
[2019-05-17] MEDS ORDERED: SENOKOT S PO PRN (22:34)
[2019-05-17] MEDS ORDERED: BENADRYL IV ONE (23:58)
[2019-05-18] MEDS: HEPARIN/ 0.45% NACL-25,000 UNIT/500 ML 25,000 UNIT/500 ML BAG IV SCH (00:49)
[2019-05-18 04:48] LABS: Hematocrit 41.9 % (35.5-45.6); Hemoglobin 14.2 gm/dl (11.8-15.2); Mean Corpuscular HGB Conc 34 % (32-34); Mean Corpuscular Volume 89 fl (84-94); Platelet Count 288 K/mm3 (140-440); Red Blood Count 4.73 M/mm3 (3.65-5.03); Red Cell Distribution Width 13.8 % (13.2-15.2)
[2019-05-18] MEDS: NACL 0.9% 1000 ML 1,000 ML IV SCH (05:04)
[2019-05-18 05:13] LABS: BUN/Creatinine Ratio 16; Blood Urea Nitrogen 13 mg/dL (9-20); Calcium 8.4 mg/dL (8.4-10.2); Hemolysis Index 18
[2019-05-18] MEDS: ASPIRIN PO SCH ×2 (07:35→12:33)
[2019-05-18] MEDS ORDERED: ASPIRIN ONE (07:36)
[2019-05-18] MEDS ORDERED: HEPARIN/NS 5000 UNIT/500ML(CATH LAB) 1,000 ML IR ONE (08:15)
[2019-05-18] MEDS ORDERED: SUBLIMAZE ONE (08:16)
[2019-05-18] MEDS ORDERED: CALAN ONE (08:16)
[2019-05-18] MEDS ORDERED: XYLOCAINE 2% INFILTRATI ONE (08:16)
[2019-05-18] MEDS ORDERED: NITROGLYCERIN SYRINGE 3 ML ONE (08:16)
[2019-05-18] MEDS ORDERED: VERSED ONE (08:16)
[2019-05-18] MEDS: HEPARIN 10,000 UNITS/10 ML ONE ×3 (08:45→09:20)
[2019-05-18] MEDS ORDERED: PLAVIX ONE ×2 (09:33→09:48)
[2019-05-18] MEDS ORDERED: ALUM-MAG HYDROX-SIMETH 200-200-20MG/5ML ONE (09:33)
--- NOTE | 2019-05-18 10:56 | Cardiac Catherization Report ---
CARDIAC CATHETERIZATION REFERRING PHYSICIANS: Dr. Damon and Dr. Amando Walter. INDICATION FOR PROCEDURE: The patient is a 48-year-old gentleman having chest pain, abnormal stress test, had further chest pain last night consistent with acute coronary syndrome, started on IV heparin, brought to the slab lifting supervisor. Risks, benefits, and alternatives explained at length prior to obtaining informed consent. PROCEDURE IN DETAIL: The patient was brought to slab lifting supervisor in a postabsorptive state, prepped and draped in sterile fashion. Maximiliano's test in right hand was normal. A 2 mL of 2% lidocaine anesthetized the right wrist. A standard 6-Sami hydrophilic sheath used to cannulate the right radial artery via modified Seldinger technique. All exchanges were performed to exchange a J-tip guidewire. JL3.5 catheter was used to engage the left main. No dampening or ventricularization. Cineangiography performed in multiple projections. JR4 catheter was used to cross the aortic valve under fluoroscopic guidance. Left ventriculography in 30 PRIEST and 30 KAZAKH projections via hand injections, catheter flushed. Manual pullback performed with continuous pressure monitoring. Catheter was used to engage the right coronary. No dampening or ventricularization. Cineangiography performed in multiple projections. JR4 catheter was used to cross the aortic valve under fluoroscopic guidance. Left ventriculography performed in 30 PRIEST and 30 KAZAKH projections via hand injections, catheter flushed. Manual pullback performed with continuous pressure monitoring. DATA: Aortic pressure is 110/60, LV pressure is 110, LVEDP of 20 mmHg. Left ventriculography reveals anterior hypokinesis with overall ejection fraction of 45-50%. No evidence of aortic stenosis, a high normal LVEDP. CORONARY ANATOMY: This is a right dominant system. Right coronary with stents in the proximal and mid segment with a 90% ulcerated atherothrombotic stenosis in the mid segment. This is consistent with the culprit lesion. JAE 2 flow. Left main without significant disease, bifurcates left anterior and left circumflex. Left circumflex is a moderate-sized vessel, courses AV groove. No significant disease. LAD appears to be chronically totally occluded in the high mid segment with left to left collaterals who fill the distal LAD. Given ischemia in the anterior and inferior regions, ongoing chest pain and culprit lesion in the RCA, it was decided to proceed with PCI of RCA. Prior to this, I did speak with Dr. Edgar of Cardiac Surgery regarding plan. We will plan a PCI of RCA and given that it is the culprit lesion, subsequently consider robotic RYDER to LAD. To that end, further heparin was given. Abnormal ACT was confirmed. The patient loaded with aspirin and Plavix. A JR4 guide used to engage the right coronary without difficulty. A Prowater wire was used to cross the lesion without difficulty. We placed a 2.75 x 18 Resolute Carlos Manuel stent at 12 HODAN for 30 seconds. Excellent angiographic result, 0% residual stenosis, JAE 3 flow, no complications. An intravascular ultrasound was performed and multiple passes were made, reveals a well-apposed and well-expanded stent. No complications. Final angiogram reveals excellent angiographic result. I directly supervised the administration of moderate sedation from 8:41 a.m. to 9:30 a.m. with fentanyl and Versed. The patient is clinically stable and chest pain free. CONCLUSIONS: 1. Severe multivessel disease. a. Acute atherothrombotic 90% stenosis of the mid right coronary, successful IVUS-guided PCI of in-stent restenosis/ulceration with placement of drug-eluting stent ([place] 2.75 x 18) with excellent final angiographic and ultrasonographic results. b. Chronic total occlusion of mid LAD with extensive left to left collaterals. 2. Anterior dyskinesis, estimated ejection fraction of 45%. 3. No evidence of aortic stenosis. 4. High normal LVEDP. The patient is clinically stable. We will watch closely, will be transferred to [facility] for a possible robotic RYDER to LAD. If he has no further chest pain, may consider doing this at another setting. Discussed with Dr. Edgar. Standard radial care. Results of procedure were explained to the patient and family and all questions and concerns were addressed. JOB# [id number] SBM/NTS
[2019-05-18] MEDS: LOPRESSOR PO SCH (11:56)
[2019-05-18] MEDS: ZESTRIL PO SCH (11:57)
[2019-05-18] MEDS: SODIUM CHLORIDE FLUSH SYRINGE 10 ML IV SCH (11:57)
[2019-05-18] MEDS: NITROSTAT SL PRN (15:11)
--- NOTE | 2019-05-18 15:54 | Progress Note ---
Assessment and Plan Assessment and plan: 48 YO Male with HTN, Obesity, AK, CAD S/P Stent Placement, Nephrolithiasis presents to ED for evaluation. Pt states that he has experienced pain in his chest over the past 1 week, with worsening symptoms over the past 1 day. Pt states that pain acutely worsened this morning shortly after eating breakfast. Pt states that pain 05/05/10, Intermittent, localized to the left chest, radiates to the left arm, worsened with exertion, improved with nitro. Pt also acknowledges Orthopnea/PND and decreased exercise tolerance. EMS notified, and patient transported to [facility]. Pt seen and evaluated in ED and found to have symptoms consistent with Angina, and CHF Decompensation. Pt admitted to telemetry. Cardiology consulted in ED. Pt denies fever, chills, palpitations, NVD, Trauma, BRBPR, Productive cough, hemoptysis, shortness of breath, or recent ill contacts, leg swelling, calf pain, individual/family history of DVT/PE/Bleeding/Blood Clotting Disorders, skin rash. No prior admission for review. All medication listed reconciled at time of admission. (1) Angina at rest-NSTEMI Current Visit: Yes Status: Acute Plan to address problem: Serial cardiac enzymes, ekg, morphine, supplemental oxygen, nitro, aspirin, Discussed with cardiology Heparin drip started stress test positive- went for cardiac cath and noted to have severe multivessel disease * successful IVUS GUIDED PCI of in-stent restenosis/Ulceration with placement of drug eluting stnt * Chronic Total occlusion of Mid LAD with extensive left to left collateral * Anterior dyskinesis * Consider eval for Possible Robotic RYDER to LAD now or in future if no further chest pain (2) Diastolic CHF Current Visit: Yes Status: Acute Qualifiers: Heart failure chronicity: acute Qualified Code(s): I50.31 - Acute diastolic (congestive) heart failure Plan to address problem: Strict I/O, daily weight, bnp, afterload reduction, cardiology consulted in ED. Echo as per cardiology team. (3) HTN (hypertension) Current Visit: Yes Status: Acute Qualifiers: Hypertension type: essential hypertension Qualified Code(s): I10 - Essential (primary) hypertension Plan to address problem: Monitor BP q shift, continue medical management. (4) CAD (coronary artery disease) Current Visit: Yes Status: Acute Qualifiers: Associated angina: with stable angina Plan to address problem: lipid panel, low cholesterol diet, statin therapy, (5) Obesity (BMI 30.0-34.9) Current Visit: Yes Status: Acute Plan to address problem: balanced diet, increased physical activity at discharge, +15 minutes behavior change. (6) DVT prophylaxis Current Visit: Yes Status: Acute Plan to address problem: SCD to BLE while in bed, Pt is ambulatory Plan discussed with cardiology and the [facility] director of occupational therapy. History Interval history: Patient seen and examined and in no acute distress, cardiac cath done today Hospitalist Physical - Physical exam Narrative exam: General appearance: Present: mild distress, well-nourished - EENT Eyes: Present: PERRL ENT: hearing intact, clear oral mucosa - Neck Neck: Present: supple, normal ROM - Respiratory Respiratory effort: normal Respiratory: bilateral: CTA - Cardiovascular Heart Sounds: Present: S1 & S2. Absent: rub, click - Extremities Extremities: pulses symmetrical, No edema Peripheral Pulses: within normal limits - Abdominal General gastrointestinal: Present: soft, non-tender, non-distended, normal bowel sounds Male genitourinary: Present: normal - Integumentary Integumentary: Present: clear, warm, dry - Musculoskeletal Musculoskeletal: gait normal, strength equal bilaterally - Psychiatric Psychiatric: appropriate mood/affect, intact judgment & insight - Neurologic Neurologic: CNII-XII intact, moves all extremities - Constitutional Vitals: Temp Pulse Resp BP Pulse Ox 97.8 F 66 18 122/79 97 05/18/19 09:40 05/18/19 15:11 05/18/19 13:14 05/18/19 15:11 05/18/19 13:14 General appearance: Present: no acute distress Results - Labs CBC & Chem 7: 05/18/19 04:40 05/18/19 04:40 Labs: Laboratory Last Values WBC 9.3 K/mm3 (4.5-11.0) 05/18/19 04:40 RBC 4.73 M/mm3 (3.65-5.03) 05/18/19 04:40 Hgb 14.2 gm/dl (11.8-15.2) 05/18/19 04:40 Hct 41.9 % (35.5-45.6) 05/18/19 04:40 MCV 89 fl (84-94) 05/18/19 04:40 MCH 30 pg (28-32) 05/18/19 04:40 MCHC 34 % (32-34) 05/18/19 04:40 RDW 13.8 % (13.2-15.2) 05/18/19 04:40 Plt Count 288 K/mm3 (140-440) 05/18/19 04:40 Lymph % (Auto) 21.2 % (13.4-35.0) 05/16/19 09:51 [place] % (Auto) 9.5 % (0.0-7.3) H 05/16/19 09:51 Eos % (Auto) 5.3 % (0.0-4.3) H 05/16/19 09:51 Baso % (Auto) 0.9 % (0.0-1.8) 05/16/19 09:51 Lymph # 1.7 K/mm3 (1.2-5.4) 05/16/19 09:51 [place] # 0.8 K/mm3 (0.0-0.8) 05/16/19 09:51 Eos # 0.4 K/mm3 (0.0-0.4) 05/16/19 09:51 Baso # 0.1 K/mm3 (0.0-0.1) 05/16/19 09:51 Seg Neutrophils % 63.1 % (40.0-70.0) 05/16/19 09:51 Seg Neutrophils # 5.1 K/mm3 (1.8-7.7) 05/16/19 09:51 PT 13.4 Sec. (12.2-14.9) 05/17/19 12:48 INR 1.05 (0.87-1.13) 05/17/19 12:48 APTT 23.0 Sec. (24.2-36.6) L 05/17/19 12:48 208 (74-137) H 05/18/19 09:21 Heparin Anti-Xa Level 0.17 U.I./ml (0.3-0.7) L 05/18/19 04:40 Sodium 137 mmol/L (137-145) 05/18/19 04:40 Potassium 4.0 mmol/L (3.6-5.0) 05/18/19 04:40 Chloride 104.5 mmol/L (98-107) 05/18/19 04:40 Carbon Dioxide 22 mmol/L (22-30) 05/18/19 04:40 15 mmol/L 05/18/19 04:40 BUN 13 mg/dL (9-20) 05/18/19 04:40 0.8 mg/dL (0.8-1.5) 05/18/19 04:40 Estimated GFR > 60 ml/min 05/18/19 04:40 16 % 05/18/19 04:40 Glucose 109 mg/dL (75-100) H 05/18/19 04:40 Calcium 8.4 mg/dL (8.4-10.2) 05/18/19 04:40 < 0.010 ng/mL (0.00-0.029) 05/17/19 17:52 Triglycerides 138 mg/dL (2-149) 05/17/19 04:42 Cholesterol 123 mg/dL (50-199) 05/17/19 04:42 86 mg/dL (50-130) 05/17/19 04:42 29 mg/dL (40-59) L 05/17/19 04:42 4.24 % 05/17/19 04:42 19 units/L (13-60) 05/16/19 09:51 Active Medications - Current Medications Current Medications: Generic Name Dose Route Start Last Admin Trade Name Freq PRN Reason Stop Dose Admin Acetaminophen 650 mg 05/16/19 13:25 05/16/19 16:49 Tylenol PO 650 mg Q4H PRN Administration Pain MILD(1-3)/Fever >100.5/PERALES Albuterol 2.5 mg 05/16/19 13:25 Proventil IH Q4HRT PRN Shortness Of Breath Aspirin 325 mg 05/17/19 10:00 05/18/19 12:33 Aspirin PO Not Given QDAY BITA Atorvastatin Calcium 20 mg 05/16/19 22:00 05/17/19 21:12 Lipitor PO 20 mg QHS BITA Administration Sodium Chloride 1,000 mls @ 75 mls/hr 05/17/19 17:50 05/18/19 05:04 Nacl 0.9% 1000 Ml IV 75 mls/hr DIRECT BITA Administration Lisinopril 20 mg 05/17/19 10:00 05/18/19 11:57 Zestril PO Not Given QDAY BITA Metoprolol Tartrate 50 mg 05/16/19 22:00 05/18/19 11:56 Lopressor PO Not Given BID [facility] Nitroglycerin 0.4 mg 05/16/19 13:25 05/18/19 15:11 Nitrostat SL 0.4 mg Q5M PRN Administration Chest Pain Ondansetron HCl 4 mg 05/16/19 13:25 05/16/19 19:16 Zofran IV 4 mg Q8H PRN Administration Nausea And Vomiting Senna/Docusate Sodium 2 tab 05/17/19 22:34 05/17/19 23:40 Senokot S PO 2 tab QHS PRN Administration Laxative Effect Sodium Chloride 10 ml 05/16/19 22:00 05/18/19 11:57 Sodium Chloride Flush Syringe 10 Ml IV 10 ml BID BITA Administration Sodium Chloride 10 ml 05/16/19 13:25 05/17/19 23:41 Sodium Chloride Flush Syringe 10 Ml IV 10 ml PRN PRN Administration LINE FLUSH
[2019-05-18 19:58] VITALS: BP 117/71
--- NOTE | 2019-05-19 07:16 | Discharge Summary ---
Providers - Providers Date of Admission: 05/16/19 13:25 Attending physician: DONN DIAZ MD 05/16/19 Consult to Cardiac Rehabilitation [CONS] Routine Reason For Exam: Phase I Primary care physician: [employer]FERENCE [employer]GANIZER Hospitalization Condition: Stable Hospital course: 48 YO Male with HTN, Obesity, [place], CAD S/P Stent Placement, Nephrolithiasis presents to ED for evaluation. Pt states that he has experienced pain in his chest over the past 1 week, with worsening symptoms over the past 1 day. Pt states that pain acutely worsened this morning shortly after eating breakfast. Pt states that pain 05/05/10, Intermittent, localized to the left chest, radiates to the left arm, worsened with exertion, improved with nitro. Pt also acknowledges Orthopnea/PND and decreased exercise tolerance. EMS notified, and patient transported to [facility]. Pt seen and evaluated in ED and found to have symptoms consistent with Angina, and CHF Decompensation. Pt admitted to telemetry. Cardiology consulted in ED. Pt denies fever, chills, palpitations, NVD, Trauma, BRBPR, Productive cough, hemoptysis, shortness of breath, or recent ill contacts, leg swelling, calf pain, individual/family history of DVT/PE/Bleeding/Blood Clotting Disorders, skin rash. No prior admission for review. All medication listed reconciled at time of admission. (1) Angina at rest-NSTEMI Current Visit: Yes Status: Acute Plan to address problem: Serial cardiac enzymes, ekg, morphine, supplemental oxygen, nitro, aspirin, Discussed with cardiology Heparin drip started stress test positive- went for cardiac cath and noted to have severe multivessel disease * successful IVUS GUIDED PCI of in-stent restenosis/Ulceration with placement of drug eluting stnt * Chronic Total occlusion of Mid LAD with extensive left to left collateral * Anterior dyskinesis * Consider eval for Possible Robotic RYDER to LAD now or in future if no further chest pain (2) Diastolic CHF Current Visit: Yes Status: Acute Qualifiers: Heart failure chronicity: acute Qualified Code(s): I50.31 - Acute diastolic (congestive) heart failure Plan to address problem: Strict I/O, daily weight, bnp, afterload reduction, cardiology consulted in ED. Echo as per cardiology team. (3) HTN (hypertension) Current Visit: Yes Status: Acute Qualifiers: Hypertension type: essential hypertension Qualified Code(s): I10 - Essential (primary) hypertension Plan to address problem: Monitor BP q shift, continue medical management. (4) CAD (coronary artery disease) Current Visit: Yes Status: Acute Qualifiers: Associated angina: with stable angina Plan to address problem: lipid panel, low cholesterol diet, statin therapy, (5) Obesity (BMI 30.0-34.9) Current Visit: Yes Status: Acute Plan to address problem: balanced diet, increased physical activity at discharge, +15 minutes behavior change. This morning, noticed that the patient was transfered to [facility], I am believing that [facility] and the [facility] finally worked it out for the transfer to occur. Disposition: DC/TX-70 ANOTHER [facility] Core Measure Documentation - Palliative Care Palliative Care/ Comfort Measures: Not Applicable - Core Measures Any of the following diagnoses?: none Exam - Constitutional Vitals: Temp Pulse Resp BP Pulse Ox 98.8 F 80 18 117/71 96 05/18/19 19:21 05/18/19 19:21 05/18/19 19:21 05/18/19 19:21 05/18/19 19:21 Plan Follow up with: AUBREE ROBLEDO MD [Primary Care Provider] - 3-5 Days
== END 2019-05-18 20:34 | disposition short-term general hospital (02) | DRG 246 ==
LOC: EEVIPCON 09:32 → ED 09:32 → 4A 13:25 → EEVIPCON 13:25 → 4A 16:48
PROVIDERS: ADMIT Internal Medicine; ATTEND Internal Medicine
PROC: 027034Z Dilation of Coronary Artery, One Artery with Drug-eluting Intraluminal Device, Percutaneous Approach (ICD-10-PCS; principal; 2019-05-18)
PROC: 4A023N7 Measurement of Cardiac Sampling and Pressure, Left Heart, Percutaneous Approach (ICD-10-PCS; 2019-05-18)
PROC: B2111ZZ Fluoroscopy of Multiple Coronary Arteries using Low Osmolar Contrast (ICD-10-PCS; 2019-05-18)
PROC: B2151ZZ Fluoroscopy of Left Heart using Low Osmolar Contrast (ICD-10-PCS; 2019-05-18)
PROC: B240ZZ3 Ultrasonography of Single Coronary Artery, Intravascular (ICD-10-PCS; 2019-05-18)
DX: T82.855A Stenosis of coronary artery stent, initial encounter (principal); I21.4 Non-ST elevation (NSTEMI) myocardial infarction; I50.33 Acute on chronic diastolic (congestive) heart failure; I25.118 Atherosclerotic heart disease of native coronary artery with other forms of angina pectoris; I11.0 Hypertensive heart disease with heart failure; E66.9 Obesity, unspecified; Y83.2 Surgical operation with anastomosis, bypass or graft as the cause of abnormal reaction of the patient, or of later complication, without mention of misadventure at the time of the procedure; E78.5 Hyperlipidemia, unspecified; Z68.32 Body mass index [BMI] 32.0-32.9, adult; Z95.5 Presence of coronary angioplasty implant and graft; Z88.5 Allergy status to narcotic agent; Z79.82 Long term (current) use of aspirin; Z79.899 Other long term (current) drug therapy; Z82.49 Family history of ischemic heart disease and other diseases of the circulatory system; Z87.442 Personal history of urinary calculi; Z87.891 Personal history of nicotine dependence; Y92.89 Other specified places as the place of occurrence of the external cause
CPT/HCPCS: 36415; 71045; 78452; 80048; 80061; 83690; 84484; 85014; 85018; 85025; 85027; 85049; 85347; 85520; 85610; 85730; 92928; 92978; 93005; 93010; 93017; 93306; 93458; 94760; 96374; 96375; G0378; A9270-GY; A9502; C1753; C1769; C1874; C1887; C1894; C9600; J1200; J1644; J2250; J2270; J2405; J2785; J3010; J7030; Q9967

== ENCOUNTER 2019-06-02 14:34 | Emergency (ER) | payer OTHER ==
[2019-06-02] MEDS ORDERED: ASPIRIN PO ONE (14:47)
--- NOTE | 2019-06-02 14:47 | Event Note ---
ED Screening Note Date of service: 06/02/19 Time: 14:45 ED Screening Note: 48 y o male with presents with left sided chest pain and sob x yesterday This initial assessment/diagnostic orders/clinical plan/treatment(s) is/are subject to change based on patients health status, clinical progression and re- assessment by fellow clinical providers in the ED. Further treatment and workup at subsequent clinical providers discretion. Patient/guardian urged not to elope from the ED as their condition may be serious if not clinically assessed and managed. Initial orders include: natasha agrawal
--- NOTE | 2019-06-02 15:25 | XRay Report ---
CHEST 1 VIEW, 06/02/2019 2:58 PM INDICATION: Chest pain COMPARISON: Chest radiograph, 05/16/2019 FINDINGS: SUPPORT DEVICES: None HEART: The cardiac silhouette remains within normal limits in size when allowing for portable techniq ue. LUNGS/PLEURA: There is no focal airspace disease or significant pleural effusion. ADDITIONAL FINDINGS: No additional acute findings. IMPRESSION: 1. No evidence of acute cardiopulmonary process. Signer Name: Debra Rowley MD Signed: 06/02/2019 3:20 PM Workstation Name: [id number]
[2019-06-02 15:35] LABS: Basophils # (Auto) 0.1 K/mm3 (0.0-0.1); Basophils % (Auto) 0.9 % (0.0-1.8); Eosinophils # (Auto) 0.5 K/mm3 (0.0-0.4); Eosinophils % (Auto) 3.7 % (0.0-4.3); Hematocrit 36.5 % (35.5-45.6); Lymphocytes # (Auto) 1.9 K/mm3 (1.2-5.4); Lymphocytes % (Auto) 13.2 % (13.4-35.0); Mean Corpuscular HGB Conc 33 % (32-34); Mean Corpuscular Volume 88 fl (84-94); Monocytes # (Auto) 1.3 K/mm3 (0.0-0.8); Monocytes % (Auto) 9.2 % (0.0-7.3); Platelet Count 700 K/mm3 (140-440); Red Blood Count 4.17 M/mm3 (3.65-5.03); Red Cell Distribution Width 14.6 % (13.2-15.2)
[2019-06-02 15:45] LABS: INR 1.04 (0.87-1.13)
[2019-06-02 15:46] LABS: Partial Thromboplastin Time 33.6 Sec. (24.2-36.6)
[2019-06-02 15:55] LABS: BUN/Creatinine Ratio 11; Blood Urea Nitrogen 10 mg/dL (9-20); Calcium 9.1 mg/dL (8.4-10.2); Hemolysis Index 2
[2019-06-02] MEDS ORDERED: DILAUDID IV ONE ×2 (16:51→18:20)
[2019-06-02] MEDS ORDERED: ZOFRAN IV ONE (16:52)
--- NOTE | 2019-06-02 17:23 | Emergency Department Report ---
ED Shortness of Breath HPI - General Chief Complaint: Dyspnea/Respdistress Stated Complaint: CHEST PAIN Time Seen by Provider: 06/02/19 14:45 Source: patient Mode of arrival: Ambulatory Limitations: No Limitations - History of Present Illness Initial Comments: Pt is a 48-year-old male with history of coronary artery disease status post CABG on 827 at [facility], who presents to the ED with sharp pain to the right chest cavity. No fever, stated mild chills since surgery, mild shortness of breath also. Pain is sharp in nature, rated them as 8 out of 10. Pain was relieved with pain medicine that he received upon discharge at [facility], but he ran out today. - Related Data Home Medications Medication Instructions Recorded Confirmed Last Taken Amiodarone [Cordarone 200 MG TAB] 200 mg PO QDAY 06/02/19 06/02/19 06/02/19 Aspirin [Adult Aspirin] 162 mg PO QDAY 06/02/19 06/02/19 06/02/19 AtorvaSTATin [Lipitor] 40 mg PO QHS 06/02/19 06/02/19 06/02/19 Clopidogrel [Plavix] 75 mg PO QDAY 06/02/19 06/02/19 06/02/19 Docusate Sodium [Move It Along] 100 mg PO QDAY 06/02/19 06/02/19 06/02/19 Famotidine [Pepcid] 20 mg PO BID 06/02/19 06/02/19 06/02/19 Furosemide [Lasix TAB] 40 mg PO QDAY 06/02/19 06/02/19 06/02/19 Metoprolol [Lopressor] 25 mg PO TID 06/02/19 06/02/19 06/02/19 Potassium Chloride [K-Dur] 10 meq PO QDAY 06/02/19 06/02/19 06/02/19 Previous Rx's Medication Instructions Recorded Last Taken Type Cyclobenzaprine [Flexeril] 10 mg PO TID PRN #15 tablet 06/02/19 Unknown Rx Allergies Allergy/AdvReac Type Severity Reaction Status Date / Time codeine Allergy Itching Verified 05/16/19 09:50 ED Review of Systems ROS: Stated complaint: CHEST PAIN Other details as noted in HPI Comment: All other systems reviewed and negative ENT: denies: ear pain Respiratory: denies: cough Cardiovascular: chest pain, dyspnea on exertion. denies: palpitations, syncope ED Past Medical Hx - Past Medical History Previous Medical History?: Yes Hx Hypertension: Yes Hx Heart Attack/AMI: Yes (2010) Hx Kidney Stones: Yes - Surgical History Past Surgical History?: Yes Hx Coronary Stent: Yes (2010 x2) Additional Surgical History: Left shoulder surgery, Right knee surgery - Social History Smoking Status: Unknown if ever smoked - Medications Home Medications: Home Medications Medication Instructions Recorded Confirmed Last Taken Type Amiodarone [Cordarone 200 MG TAB] 200 mg PO QDAY 06/02/19 06/02/19 06/02/19 History Aspirin [Adult Aspirin] 162 mg PO QDAY 06/02/19 06/02/19 06/02/19 History AtorvaSTATin [Lipitor] 40 mg PO QHS 06/02/19 06/02/19 06/02/19 History Clopidogrel [Plavix] 75 mg PO QDAY 06/02/19 06/02/19 06/02/19 History Cyclobenzaprine [Flexeril] 10 mg PO TID PRN #15 tablet 06/02/19 Unknown Rx Docusate Sodium [Move It Along] 100 mg PO QDAY 06/02/19 06/02/19 06/02/19 History Famotidine [Pepcid] 20 mg PO BID 06/02/19 06/02/19 06/02/19 History Furosemide [Lasix TAB] 40 mg PO QDAY 06/02/19 06/02/19 06/02/19 History Metoprolol [Lopressor] 25 mg PO TID 06/02/19 06/02/19 06/02/19 History Potassium Chloride [K-Dur] 10 meq PO QDAY 06/02/19 06/02/19 06/02/19 History ED Physical Exam - General Limitations: No Limitations General appearance: alert, in no apparent distress - Head Head exam: Present: atraumatic, normocephalic - Eye Eye exam: Present: normal appearance, PERRL, EOMI Pupils: Present: normal accommodation - ENT ENT exam: Present: normal exam - Neck Neck exam: Present: normal inspection - Respiratory Respiratory exam: Present: normal lung sounds bilaterally - Cardiovascular Cardiovascular Exam: Present: regular rate, normal rhythm - GI/Abdominal GI/Abdominal exam: Present: soft - Back Exam Back exam: Present: normal inspection - Neurological Exam Neurological exam: Present: alert, oriented X3, CN II-XII intact - Skin Skin exam: Present: other (surgical wound d/c/i) ED Course Vital Signs 06/02/19 06/02/19 06/02/19 14:44 15:35 16:00 Temperature 98.4 F Pulse Rate 92 H 79 Respiratory 20 14 Rate Blood Pressure 115/72 124/69 Blood Pressure [Right] O2 Sat by Pulse 97 82 L 97 Oximetry 06/02/19 06/02/19 06/02/19 17:00 18:00 19:22 Temperature Pulse Rate 79 78 84 Respiratory 15 12 15 Rate Blood Pressure 124/69 99/52 Blood Pressure 125/78 [Right] O2 Sat by Pulse 95 95 97 Oximetry 06/02/19 20:25 Temperature Pulse Rate 82 Respiratory 12 Rate Blood Pressure Blood Pressure 127/67 [Right] O2 Sat by Pulse 96 Oximetry ED Medical Decision Making - Lab Data Result diagrams: 06/02/19 15:03 06/02/19 15:03 - EKG Data -: EKG Interpreted by Ny EKG shows normal: sinus rhythm Rate: normal - EKG Data Interpretation: nonspecific ST-T wave meet - Radiology Data Radiology results: report reviewed - Medical Decision Making Chest pain, status post CABG 05/23/19, CT anginal chest showed no PE, mild to moderate pericardial effusion, patient given Dilaudid 0.5 mg IV, which relieved his pain completely. I advised admission for observation, but he states he felt better and wants to go home. Return is symptoms worsen. Critical care attestation.: If time is entered above; I have spent that time in minutes in the direct care of this critically ill patient, excluding procedure time. ED Disposition Clinical Impression: Chest pain in adult, Post-operative pain Disposition: DC-01 TO HOME OR SELFCARE Is pt being admited?: No Does the pt Need Aspirin: No Condition: Stable Instructions: Chest Pain (ED) Prescriptions: Cyclobenzaprine [Flexeril] 10 mg PO TID PRN #15 tablet PRN Reason: Muscle Spasm Referrals: GUI CHILDERS MD [Primary Care Provider] - 3-5 Days
--- NOTE | 2019-06-02 20:02 | Cat Scan Report ---
CT angio chest INDICATION: chest pain post cabg, r/o P.E. TECHNIQUE: All CT scans at this location are performed using CT dose reduction for ALARA by means of automated e xposure control. Precontrast localizer images were obtained, followed by axial and 3-dimensional reconstruction images , performed at an independent workstation by the chemistry technologist after IV bolus contrast injection. COMPARISON: None available. FINDINGS: Postop change in the left anterior chest wall. Small to moderate-sized pericardial effusion. Minimal left pleural effusion. Mild linear plexus in the left mid and lower lung, but no acute pulmonary dise ase. No evidence of pulmonary embolus. IMPRESSION: 1. Postop changes, including pericardial effusion. 2. Negative for pulmonary embolus. Signer Name: Duran Chinchilla MD Signed: 06/02/2019 7:58 PM Workstation Name: [id number]
[2019-06-02 20:27] VITALS: BP 127/67
== END 2019-06-02 21:00 | disposition home or self-care (01) ==
LOC: ED 14:34
DX: R07.89 Other chest pain (principal); G89.29 Other chronic pain; I10 Essential (primary) hypertension; I25.10 Atherosclerotic heart disease of native coronary artery without angina pectoris; Z95.1 Presence of aortocoronary bypass graft; Z79.82 Long term (current) use of aspirin; Z79.899 Other long term (current) drug therapy; Z88.5 Allergy status to narcotic agent; Z98.890 Other specified postprocedural states
CPT/HCPCS: 36415; 71045; 71275; 80048; 84484; 85025; 85610; 85730; 93005; 93010; 96374; 96375; 96376; 99285; J1170; J2405; Q9967

== ENCOUNTER 2019-06-28 14:02 | Emergency (ER) | payer SELFPAY ==
--- NOTE | 2019-06-28 15:49 | Event Note ---
ED Screening Note ED Screening Note: This initial assessment/diagnostic orders/clinical plan/treatment(s) is/are subject to change based on patients health status, clinical progression and re- assessment by fellow clinical providers in the ED. Further treatment and workup at subsequent clinical providers discretion. Patient/guardian urged not to elope from the ED as their condition may be serious if not clinically assessed and managed. Initial orders include: 49 yo Male present with gradual R elbow swelling. He states that it ctarted while he was at work with no injury. He verbalizes that his pain is a 6 and he has difficulty with bending his R elbow.
--- NOTE | 2019-06-28 15:56 | Emergency Department Report ---
ED Back Pain/Injury HPI - General Chief Complaint: Extremity Problem,Nontraumatic Stated Complaint: ELBOW PAIN/SWOLLEN Time Seen by Provider: 06/28/19 15:52 Source: patient Limitations: No Limitations - History of Present Illness Initial Comments: 49 YO COMES TO ER WITH R ELBOW PAIN AND SWELLING P LAYING CARPET TODAY. NO FALL. POS REPETITIVE MOVEMENT. ON PLAVIX AND ASA. PT DENIES BUMPING ARM. R ELBOW SWOLLEN ON ARRIVAL. Complaint: other -: Sudden Similar Symptoms Previously: No Place: work Radiation: none Severity: mild Quality: aching Consistency: constant Improves With: immobilization Worsens With: movement Context: other Associated Symptoms: denies other symptoms - Related Data Home Medications Medication Instructions Recorded Confirmed Last Taken Amiodarone [Cordarone 200 MG TAB] 200 mg PO QDAY 06/02/19 06/02/19 06/02/19 Aspirin [Adult Aspirin] 162 mg PO QDAY 06/02/19 06/02/19 06/02/19 AtorvaSTATin [Lipitor] 40 mg PO QHS 06/02/19 06/02/19 06/02/19 Clopidogrel [Plavix] 75 mg PO QDAY 06/02/19 06/02/19 06/02/19 Docusate Sodium [Move It Along] 100 mg PO QDAY 06/02/19 06/02/19 06/02/19 Famotidine [Pepcid] 20 mg PO BID 06/02/19 06/02/19 06/02/19 Furosemide [Lasix TAB] 40 mg PO QDAY 06/02/19 06/02/19 06/02/19 Metoprolol [Lopressor] 25 mg PO TID 06/02/19 06/02/19 06/02/19 Potassium Chloride [K-Dur] 10 meq PO QDAY 06/02/19 06/02/19 06/02/19 Previous Rx's Medication Instructions Recorded Last Taken Type Cyclobenzaprine [Flexeril] 10 mg PO TID PRN #15 tablet 06/02/19 Unknown Rx traMADol [Ultram] 50 mg PO Q6HR PRN #10 tablet 06/28/19 Unknown Rx Allergies Allergy/AdvReac Type Severity Reaction Status Date / Time codeine Allergy Itching Verified 06/28/19 15:31 ED Review of Systems ROS: Stated complaint: ELBOW PAIN/SWOLLEN Other details as noted in HPI Comment: All other systems reviewed and negative ED Past Medical Hx - Past Medical History Medical history: AMI, hyperlipidemia, hypertension Surgical history: no surgical history Psychiatric history: no pertinent history Family history: no significant family history ED Back Pain Physical Exam - Exam General: Vital signs noted. No distress. Alert and acting appropriately. Back/Abdomen: No Abdominal Tenderness, No Perithoracic Tenderness, No Perilumbar Tenderness, No Sacroiliac Tenderness, No Flank Tenderness, No Straight Leg Raise Pain Neuro: Yes Normal Sensation, Yes Normal DTR's, Yes Normal Gait, No Motor Weakness ED Course Vital Signs 06/28/19 14:06 Temperature 98.2 F Pulse Rate 74 Respiratory 14 Rate Blood Pressure 108/73 [Left] O2 Sat by Pulse 98 Oximetry Ed Back Pain Tests - Tests Tests: Normal X Rays ED Medical Decision Making - Radiology Data Radiology results: report reviewed, image reviewed - Medical Decision Making XRAY NEG FOR FX POS EFFUSION ON EXAM MEDICATED FOR PAIN ICE SLING AND SWATH PT EDUCATED ON FOLLOW UP WITH ORTHO; JADA GIVEN HE IS ON PLAVIX RAD/ULNAR PULSES NORMAL RAPID CAP REFILL FULL ROM DC HOME WITH FOLLOW UP WITH ORTHO Vital Signs 06/28/19 14:06 Temperature 98.2 F Pulse Rate 74 Respiratory 14 Rate Blood Pressure 108/73 [Left] O2 Sat by Pulse 98 Oximetry - Differential Diagnosis RO FX Critical care attestation.: If time is entered above; I have spent that time in minutes in the direct care of this critically ill patient, excluding procedure time. ED Disposition Clinical Impression: Elbow pain, Elbow effusion Disposition: DC-01 TO HOME OR SELFCARE Is pt being admited?: No Does the pt Need Aspirin: No Condition: Stable Instructions: Elbow Bursitis (ED) Additional Instructions: ICE REST ELEVATE SLING AND SWATH MOTRIN OR TYLENOL OVER THE COUNTER FOR PAIN CALL DR ALMEIDA IN AM AND MAKE APPNT FOR ELENI TELL HIM YOU ARE ON PLAVIX AND HAVE ELBOW SWELLING AND YOU WERE SEEN IN THE ER TODAY Prescriptions: traMADol [Ultram] 50 mg PO Q6HR PRN #10 tablet PRN Reason: Pain Referrals: PRIMARY CARE, [Primary Care Provider] - 3-5 Days MELI ALMEIDA MD [Staff Physician] - 3-5 Days Time of Disposition: 16:41
--- NOTE | 2019-06-28 16:23 | XRay Report ---
Right elbow, 3 views INDICATION: R ELBOW PAIN. COMPARISON: None. IMPRESSION: No acute osseous or soft tissue abnormality. No significant DJD. Signer Name: Ezio Dowell Jr, MD Signed: 06/28/2019 4:19 PM Workstation Name: [id number]
[2019-06-28] MEDS ORDERED: oxyCODONE /ACETAMINOPHEN 5-325MG TAB PO ONE (16:38)
[2019-06-28] MEDS ORDERED: predniSONE 20 MG TAB PO ONE (16:39)
[2019-06-28 17:01] VITALS: BP 110/70
== END 2019-06-28 17:01 | disposition home or self-care (01) ==
LOC: ED 14:02
DX: M25.421 Effusion, right elbow (principal); Z88.5 Allergy status to narcotic agent
CPT/HCPCS: 73080; 99283; J7512

== ENCOUNTER 2019-09-19 12:59 | Emergency (ER) | payer SELFPAY | END 2019-09-19 17:20 | disposition left against medical advice (07) | LOC: ED 12:59 | CPT/HCPCS: 71046; 93005; 93010 ==